=== PATIENT | female | born 1970 | race Caucasian/White ===

== ENCOUNTER → 2016-07-31 | Outpatient (CLI) | payer BC ==
--- NOTE | 2016-07-31 09:52 | REPMRS ---
Patient History The patient states she has not had a clinical breast exam in over a year. Family history of breast cancer in paternal grandmother at age 60 and colorectal cancer in maternal grandmother at age 67. Benign radio exam breast specimen of the right breast, July 18, 2014. Benign stereotatic loc for ea lesion of the right breast, July 18, 2014. Benign radio exam breast specimen of the right breast, July 26, 2013. Benign stereotatic loc for ea lesion of the right breast, July 26, 2013. Took hormonal contraceptives for 9 years. Digital Mammo Screening Bilat: July 31, 2016 - Exam #: [id number] Bilateral CC and MLO view(s) were taken. Technologist: Lynnette Robertson Technologist Prior study comparison: July 25, 2015, bilateral digital mammo screening bilat performed at [facility]. May 25, 2015, right breast digital mammo diagnostic unilateral performed at [facility]. FINDINGS: The breast tissue is extremely dense which could obscure a lesion on mammography. There is no evidence of cancer on this mammogram. Large coarse benign appearing calcifications are present. No significant changes when compared with prior studies. ASSESSMENT: BI-RADS/ACR category 2 mammogram. Benign finding(s). Recommendation Routine screening mammogram of both breasts in 1 year (for women over age 40). This mammogram was interpreted with the aid of an FDA-approved computer-aided dectection system. Electronically Signed By: Romeo Scott MD 07/31/16 0952
== END | disposition home or self-care (01) ==
LOC: M RAD 08:53
PROVIDERS: ATTEND Family Medicine
DX: Z12.31 Encounter for screening mammogram for malignant neoplasm of breast (principal); Z80.3 Family history of malignant neoplasm of breast; Z92.0 Personal history of contraception

== ENCOUNTER → 2016-08-26 | Outpatient (CLI) | payer BC ==
--- NOTE | 2016-08-26 11:26 | REP ---
Clinical: Right upper quadrant and post prandial pain. Technique: Scott scale ultrasound using curved array transducer. Findings: The liver and pancreas are normal in contour, size, and echogenicity without focal hepatic or pancreatic lesions identified. The gallbladder is normal without gallstones, wall thickening or pericholecystic fluid. No biliary ductal dilatation is appreciated, and the common bile duct measures 2.5 mm diameter. The right kidney is normal in reniform shape without hydronephrosis and measures 9.8 x 4.5 x 4.0 cm. Incidental note is made of small, subcentimeter simple renal cyst. No ascites. Visualized portions of the abdominal aorta normal. Impression: Subcentimeter renal cyst. Otherwise normal right upper quadrant and gallbladder abdominal ultrasound. Signed by Evgeny Claudio MD 08/26/2016 07:45 A
== END | disposition home or self-care (01) ==
LOC: M RAD 07:05
PROVIDERS: ATTEND Family Medicine
DX: N28.1 Cyst of kidney, acquired (principal)

== ENCOUNTER → 2016-10-01 | Outpatient (CLI) | payer BC ==
[2016-10-01 09:04] LABS: BASO % 0.4 % (0.0-1.0); EOS % 1.6 % (0.0-3.0); LYMPH # 0.7 K/mm3 (1.5-4.5); LYMPH % 20.9 % (24.0-44.0); MEAN CORPUSCULAR HEMOGLOBIN 32.8 pg (27.0-33.0); MEAN CORPUSCULAR HGB CONC 34.4 g/dl (32.0-36.5); MEAN CORPUSCULAR VOLUME 95.4 fl (80.0-96.0); MONO # 0.3 K/mm3 (0.0-0.8); NEUTROPHILS # 2.2 K/mm3 (1.8-7.7); NEUTROPHILS % 65.8 % (36.0-66.0); RED CELL DISTRIBUTION WIDTH 11.7 % (11.5-14.5); WHITE BLOOD COUNT 3.4 K/mm3 (4.0-10.0)
[2016-10-01 09:40] LABS: ALBUMIN 3.9 GM/DL (3.2-5.2); ALBUMIN/GLOBULIN RATIO 1.34 (1.00-1.93); ALKALINE PHOSPHATASE 74 U/L (45-117); ALT/SGPT 23 U/L (12-78); ANION GAP 7 MEQ/L (8-16); AST/SGOT 16 U/L (15-37); BILIRUBIN,TOTAL 0.4 MG/DL (0.2-1.0); BLOOD UREA NITROGEN 11 MG/DL (7-18); CALCIUM LEVEL 8.2 MG/DL (8.5-10.1); CARBON DIOXIDE LEVEL 25 MEQ/L (21-32); CHLORIDE LEVEL 107 MEQ/L (98-107); CREATININE FOR GFR 0.91 MG/DL (0.55-1.02); GLOMERULAR FILTRATION RATE > 60.0 (>58); GLUCOSE, FASTING 87 MG/DL (70-105); IMMUNOGLOBULIN G 994 MG/DL (681-1648); POTASSIUM SERUM 4.2 MEQ/L (3.5-5.1); SODIUM LEVEL 139 MEQ/L (136-145); TOTAL PROTEIN 6.8 GM/DL (6.4-8.2)
== END ==
LOC: M LAB 08:36
PROVIDERS: ATTEND Allergy & Immunology Allergy
DX: D83.9 Common variable immunodeficiency, unspecified (principal)

== ENCOUNTER → 2017-01-23 | Outpatient (REF) | payer BC ==
[2017-01-23 17:59] LABS: ALBUMIN/GLOBULIN RATIO 1.29 (1.00-1.93); ALKALINE PHOSPHATASE 87 U/L (45-117); ALT/SGPT 23 U/L (12-78); ANION GAP 4 MEQ/L (8-16); AST/SGOT 11 U/L (15-37); BILIRUBIN,TOTAL 0.3 MG/DL (0.2-1.0); BLOOD UREA NITROGEN 18 MG/DL (7-18); CALCIUM LEVEL 8.3 MG/DL (8.5-10.1); CARBON DIOXIDE LEVEL 30 MEQ/L (21-32); CHLORIDE LEVEL 106 MEQ/L (98-107); CREATININE FOR GFR 0.91 MG/DL (0.55-1.02); GLOMERULAR FILTRATION RATE > 60.0 (>58); GLUCOSE, FASTING 82 MG/DL (70-105); IMMUNOGLOBULIN G 802 MG/DL (681-1648); POTASSIUM SERUM 3.8 MEQ/L (3.5-5.1); SODIUM LEVEL 140 MEQ/L (136-145); TOTAL PROTEIN 7.1 GM/DL (6.4-8.2)
[2017-01-23 18:01] LABS: MEAN CORPUSCULAR HEMOGLOBIN 34.2 pg (27.0-33.0); MEAN CORPUSCULAR HGB CONC 35.1 g/dl (32.0-36.5); MEAN CORPUSCULAR VOLUME 97.5 fl (80.0-96.0); WHITE BLOOD COUNT 8.9 K/mm3 (4.0-10.0)
== END ==
LOC: M LABDRAW1 17:14
PROVIDERS: ATTEND Nurse Practitioner Family
DX: D83.9 Common variable immunodeficiency, unspecified (principal)

== ENCOUNTER → 2017-04-24 | Outpatient (CLI) | payer BC ==
--- NOTE | 2017-04-25 00:42 | REP ---
Clinical: Trauma. Technique: AP, lateral, bilateral oblique views right and left hand . Findings: The osseous structures and joint spaces are intact and normal. There is no evidence for acute fracture or dislocation. Surrounding soft tissues are unremarkable. No subcutaneous emphysema or radiodense foreign body. Impression: Normal bilateral hand radiograph series . No acute fracture or dislocation. Signed by Evgeny Claudio MD 04/25/2017 12:34 A
== END ==
LOC: M LRY 09:55
PROVIDERS: ATTEND Physician Assistant
DX: S69.91XA Unspecified injury of right wrist, hand and finger(s), initial encounter (principal); S69.92XA Unspecified injury of left wrist, hand and finger(s), initial encounter; X58.XXXA Exposure to other specified factors, initial encounter; Y92.9 Unspecified place or not applicable; Y93.9 Activity, unspecified; Y99.9 Unspecified external cause status

== ENCOUNTER → 2017-07-02 | Outpatient (REF) | payer BC ==
[2017-07-02 20:00] LABS: BASO % 0.2 % (0.0-1.0); EOS # 0.1 10^3/uL (0.0-0.50); EOS % 1.9 % (0.0-3.0); IMMATURE GRANULOCYTE % 0.2 % (0-0); LYMPH # 0.7 10^3/uL (1.5-4.5); LYMPH % 16.2 % (24.0-44.0); MEAN CORPUSCULAR HEMOGLOBIN 32.5 pg (27.0-33.0); MEAN CORPUSCULAR HGB CONC 33.9 g/dl (32.0-36.5); MEAN CORPUSCULAR VOLUME 95.9 fl (80.0-96.0); MONO # 0.5 10^3/uL (0.0-0.8); MONO % 10.4 % (0.0-5.0); NEUTROPHILS # 3.1 10^3/uL (1.8-7.7); NEUTROPHILS % 71.1 % (36.0-66.0); PLATELET COUNT, AUTOMATED 202 10^3/uL (150-450); RED CELL DISTRIBUTION WIDTH 11.9 % (11.5-14.5); WHITE BLOOD COUNT 4.3 10^3/uL (4.0-10.0)
[2017-07-02 20:15] LABS: ALBUMIN 4.3 GM/DL (3.2-5.2); ALBUMIN/GLOBULIN RATIO 1.43 (1.00-1.93); ALKALINE PHOSPHATASE 85 U/L (45-117); ALT/SGPT 28 U/L (12-78); ANION GAP 8 MEQ/L (8-16); AST/SGOT 18 U/L (7-37); BILIRUBIN,TOTAL 0.4 MG/DL (0.2-1.0); BLOOD UREA NITROGEN 15 MG/DL (7-18); CALCIUM LEVEL 8.5 MG/DL (8.5-10.1); CARBON DIOXIDE LEVEL 27 MEQ/L (21-32); CHLORIDE LEVEL 106 MEQ/L (98-107); CREATININE FOR GFR 0.86 MG/DL (0.55-1.02); GLOMERULAR FILTRATION RATE > 60.0 (>58); GLUCOSE, FASTING 86 MG/DL (70-105); IMMUNOGLOBULIN G 730 MG/DL (681-1648); MAGNESIUM LEVEL 2.2 MG/DL (1.8-2.4); POTASSIUM SERUM 3.9 MEQ/L (3.5-5.1); SODIUM LEVEL 141 MEQ/L (136-145); TOTAL PROTEIN 7.3 GM/DL (6.4-8.2)
[2017-07-02 20:27] LABS: VITAMIN B12 LEVEL 469 PG/ML (247-911)
== END ==
LOC: M SFHCLERA 17:15
PROVIDERS: ATTEND Physician Assistant
DX: D83.9 Common variable immunodeficiency, unspecified (principal); R20.9 Unspecified disturbances of skin sensation

== ENCOUNTER → 2017-08-01 | Outpatient (CLI) | payer BC | LOC: M RAD 08:33 | DX: Z12.31 Encounter for screening mammogram for malignant neoplasm of breast (principal); R92.8 Other abnormal and inconclusive findings on diagnostic imaging of breast | CPT/HCPCS: 77067 ==

== ENCOUNTER → 2017-10-21 | Outpatient (CLI) | payer BC | LOC: M RAD 07:08 | DX: R10.11 Right upper quadrant pain (principal); N20.0 Calculus of kidney | CPT/HCPCS: 76705 ==

== ENCOUNTER → 2017-10-24 | Outpatient (CLI) | payer BC | LOC: M RAD 08:43 | DX: N20.0 Calculus of kidney (principal) | CPT/HCPCS: 74176 ==

== ENCOUNTER → 2017-10-28 | Outpatient (CLI) | payer BC ==
[2017-10-28 13:02] LABS: HEMATOCRIT 43.4 % (36.0-47.0); HEMOGLOBIN 14.6 g/dl (12.0-15.5); MEAN CORPUSCULAR HEMOGLOBIN 32.6 pg (27.0-33.0); MEAN CORPUSCULAR HGB CONC 33.6 g/dl (32.0-36.5); MEAN CORPUSCULAR VOLUME 96.9 fl (80.0-96.0); PLATELET COUNT, AUTOMATED 170 10^3/uL (150-450); RED BLOOD COUNT 4.48 10^6/uL (4.00-5.40); RED CELL DISTRIBUTION WIDTH 11.9 % (11.5-14.5); WHITE BLOOD COUNT 3.6 10^3/uL (4.0-10.0)
[2017-10-28 13:28] LABS: ANION GAP 4 MEQ/L (8-16); BLOOD UREA NITROGEN 14 MG/DL (7-18); CALCIUM LEVEL 8.7 MG/DL (8.5-10.1); CARBON DIOXIDE LEVEL 29 MEQ/L (21-32); CHLORIDE LEVEL 107 MEQ/L (98-107); CREATININE FOR GFR 0.94 MG/DL (0.55-1.30); GLOMERULAR FILTRATION RATE > 60.0 (>58); GLUCOSE, FASTING 99 MG/DL (70-100); POTASSIUM SERUM 4.4 MEQ/L (3.5-5.1); SODIUM LEVEL 140 MEQ/L (136-145)
[2017-10-28 13:52] LABS: INR 0.89
[2017-10-28 13:53] LABS: PARTIAL THROMBOPLASTIN TIME 32.2 SECONDS (26.8-37.9)
== END ==
LOC: M SMT 08:36
DX: Z01.818 Encounter for other preprocedural examination (principal); N20.0 Calculus of kidney; N39.0 Urinary tract infection, site not specified
CPT/HCPCS: 80048

== ENCOUNTER → 2017-11-28 | Outpatient (CLI) | payer BC | LOC: M SMT 08:12 | DX: N20.0 Calculus of kidney (principal) | CPT/HCPCS: 74018 ==

== ENCOUNTER → 2018-02-13 | Outpatient (REF) | payer BC ==
[2018-02-13 12:36] LABS: APPEARANCE, URINE CLEAR (CLEAR); BACTERIA, URINE AUTO NEGATIVE (NEGATIVE); BILIRUBIN, URINE AUTO NEGATIVE (NEGATIVE); BLOOD, URINE BLOOD NEGATIVE (NEGATIVE); COLOR, URINE YELLOW (YELLOW); GLUCOSE, URINE (UA) AUTO NEGATIVE (NEGATIVE); KETONE, URINE AUTO NEGATIVE (NEGATIVE); LEUKOCYTE ESTERASE, URINE AUTO NEGATIVE (NEGATIVE); MUCUS, URINE SMALL (NEGATIVE); NITRITE, URINE AUTO NEGATIVE (NEGATIVE); PROTEIN, URINE AUTO NEGATIVE (NEGATIVE); RBC, URINE AUTO 0 /HPF (0-3); SPECIFIC GRAVITY URINE AUTO 1.018 (1.002-1.035); SQUAMOUS EPITHELIAL CELL UR AU 1 /HPF (0-6); UROBILINOGEN, URINE AUTO 0.2 mg/dL (0.0-2.0); WBC, URINE AUTO 0 /HPF (0-3)
== END ==
LOC: M SMT 11:45
DX: N20.0 Calculus of kidney (principal)

== ENCOUNTER → 2018-02-19 | Outpatient (CLI) | payer BC ==
[~2018-02-19] MED LIST: PROHANCE 279.3MG/ML 15ML VIAL (A9576) As Ordered
== END ==
LOC: M RAD 15:41
DX: Z12.31 Encounter for screening mammogram for malignant neoplasm of breast (principal)
CPT/HCPCS: A9576

== ENCOUNTER → 2018-05-20 | Outpatient (CLI) | payer BC | LOC: M RAD 11:10 | DX: N63.0 Unspecified lump in unspecified breast (principal) | CPT/HCPCS: 76642 ==

== ENCOUNTER → 2018-05-25 | Outpatient (CLI) | payer BC | LOC: M RAD 11:59 | DX: N63.10 Unspecified lump in the right breast, unspecified quadrant (principal); R92.0 Mammographic microcalcification found on diagnostic imaging of breast | CPT/HCPCS: 77065 ==

== ENCOUNTER → 2018-07-23 | Outpatient (CLI) | payer BC ==
[~2018-07-23] MED LIST changes: +ATOR1TAB19 PO; +CALCIUM WITH D3 PO; +DYMI137S; +MAGN500C PO; -PROHANCE 279.3MG/ML 15ML VIAL (A9576) As Ordered; +SING10TA32 PO; +TRAZ-163 PO; +VITA500T3 PO
--- NOTE | 2018-07-23 21:45 | ECHO ---
DATE OF PROCEDURE: 07/23/2018 DATE OF : 1970 AGE: 48 REFERRING PROVIDER: Dr. Reinaldo Jones PATIENT LOCATION: Outpatient. REASON FOR THE ECHOCARDIOGRAM: Chemotherapy drug monitoring. 2D MEASUREMENTS: IVS: 0.8 cm LV: 4.1 cm LVPW: 0.89 cm LA: 3.5 cm Aorta: 2.9 cm IVC: 1.7 cm DOPPLER MEASUREMENTS: Peak velocity across the aortic valve: 1.1 m/s Peak velocity across the LVOT: 0.64 m/s Mitral E: 0.64, Mitral A: 0.43 with a ratio of 1.5 Maximum tricuspid valve velocity: 2.2 m/s 2D COMMENTS: 1. Normal left ventricular size, wall thickness, and normal global left ventricular systolic function. The estimated left ventricular systolic ejection fraction is 65-70%. 2. Normal left atrium. Normal right atrium and right ventricle. 3. The atrial septum appeared to be normal without evidence of defect or shunt. 4. Normal aortic root. 5. No pericardial effusion seen. 6. The aortic valve, mitral valve, tricuspid valve appear to be normal. The pulmonic valve and proximal pulmonary artery branches were not totally visualized. 7. The inferior vena cava was normal in size, central venous pressure is most likely normal. DOPPLER: It detects trace mitral regurgitation, trace to mild tricuspid regurgitation. The calculated pulmonary artery systolic pressure was normal. Assessment of the left ventricular diastolic function was normal. IMPRESSION: 1. Technically limited study due to poor acoustic window. 2. Normal global left ventricular systolic and diastolic function. 3. Trace mitral regurgitation. 4. Trace to mild tricuspid regurgitation with a normal calculated pulmonary artery systolic pressure. 5. Patient during the test was in normal sinus rhythm with rare isolated premature ventricular contractions (PVCs) noted. MTDD
== END ==
LOC: M CARPUL 09:19
PROVIDERS: ATTEND Internal Medicine Hematology & Oncology
DX: C50.111 Malignant neoplasm of central portion of right female breast (principal)

== ENCOUNTER → 2018-09-30 | Outpatient (CLI) | payer BC ==
[2018-09-30 07:37] LABS: HEMATOCRIT 39.6 % (36.0-47.0); HEMOGLOBIN 12.7 g/dl (12.0-15.5); MEAN CORPUSCULAR HEMOGLOBIN 29.1 pg (27.0-33.0); MEAN CORPUSCULAR HGB CONC 32.1 g/dl (32.0-36.5); MEAN CORPUSCULAR VOLUME 90.6 fl (80.0-96.0); PLATELET COUNT, AUTOMATED 264 10^3/uL (150-450); RED BLOOD COUNT 4.37 10^6/uL (4.00-5.40); WHITE BLOOD COUNT 3.5 10^3/uL (4.0-10.0)
[2018-09-30 08:07] LABS: ALBUMIN 3.9 GM/DL (3.2-5.2); ALT/SGPT 28 U/L (12-78); BILIRUBIN,TOTAL 0.3 MG/DL (0.2-1.0); BLOOD UREA NITROGEN 22 MG/DL (7-18); CALCIUM LEVEL 8.5 MG/DL (8.5-10.1); CARBON DIOXIDE LEVEL 30 MEQ/L (21-32); CHLORIDE LEVEL 105 MEQ/L (98-107); CHOLESTEROL LEVEL 286 MG/DL (<200); CHOLESTEROL RISK RATIO 4.612 (<5); CREATININE FOR GFR 0.92 MG/DL (0.55-1.30); FREE T4 1.11 NG/DL (0.76-1.46); GLOMERULAR FILTRATION RATE > 60.0 (>58); GLUCOSE, FASTING 96 MG/DL (70-100); HDL CHOLESTEROL 62 MG/DL (>40); LDL CHOLESTEROL 185 MG/DL (<100); NON-HDL-C 224 MG/DL; POTASSIUM SERUM 4.4 MEQ/L (3.5-5.1); SODIUM LEVEL 141 MEQ/L (136-145); THYROID STIMULATING HORMONE 0.694 uIU/ML (0.358-3.740); TOTAL PROTEIN 6.6 GM/DL (6.4-8.2); TRIGLYCERIDES LEVEL 196 MG/DL (<150)
[2018-09-30 09:51] LABS: TOTAL 25(OH) VITAMIN D 16.3 NG/ML (30.0-100.0)
== END ==
LOC: M LAB 06:48
PROVIDERS: ATTEND Physician Assistant
DX: E78.2 Mixed hyperlipidemia (principal); R53.82 Chronic fatigue, unspecified; E55.9 Vitamin D deficiency, unspecified

== ENCOUNTER → 2018-10-07 | Outpatient (CLI) | payer BC ==
--- NOTE | 2018-10-07 19:03 | ECHO ---
DATE OF PROCEDURE: 10/07/2018 Date of : 1970 Age: 48 Gender: Female Height: 62 inches Weight: 139 pounds Body surface area: 1.63 meters squared Outpatient. REFERRING PHYSICIAN: Reinaldo Jones INDICATION: Potentially cardiotoxic chemotherapy. MEASUREMENTS: 2D measurements: RV: 2.5 cm LV: 4.4 cm Septum: 0.8 cm Posterior wall: 0.8 cm Aortic root: 2.9 cm LA: 3.0 cm LVEF: 65%. Doppler Measurements: AV: 1.19 m/s LVOT: 0.84 m/s LVOT diameter: 2.0 cm MV-E: 55, A: 50, EA ratio: 1.1 Early mitral deceleration time: 211 ms E prime: 6, A prime: 8.8, E/E prime ratio: 8.2 PV: 0.8 m/s Pulmonary artery acceleration time: 120 ms PASP: 28 mmHg IVC: 1.0 cm COMMENTS: Normal sinus rhythm without intraventricular conduction disturbance. Occasional PVCs at times a bigeminal pattern. M-mode and two-dimensional echocardiography was performed with pulsed, continuous wave, color flow and tissue Doppler studies. Normal left ventricular size, wall thickness and wall motion. Normal left atrial size and Doppler assessment of LV diastolic function and estimated mean left atrial pressure. Normal right heart chamber sizes and motion and estimated pulmonary arterial pressure. Somewhat reduced inferior vena caval diameter with complete collapse suggestive of a somewhat low central venous pressure. Normal appearing and functioning valvular structures. No apparent to cardiac mass and a minuscule posterior pericardial effusion measuring 3 mm. No cardiac chamber compression.
== END ==
LOC: M CARPUL 10:25
PROVIDERS: ATTEND Internal Medicine Hematology & Oncology
DX: C50.111 Malignant neoplasm of central portion of right female breast (principal)

== ENCOUNTER → 2018-12-28 | Outpatient (CLI) | payer BC ==
--- NOTE | 2018-12-29 07:01 | ECHO ---
DATE OF PROCEDURE: 12/28/2018 AGE: 48 GENDER: Female. HEIGHT: 63 inches. WEIGHT: 138 pounds. BODY SURFACE AREA: 1.65 meters squared REFERRING PHYSICIAN: Reinaldo Jones MD INDICATION: Potentially cardiotoxic chemotherapy. MEASUREMENTS 2-D MEASUREMENTS: RV - 3.2 cm LV - 5.0 cm Septum 0.8 cm Posterior wall 0.8 cm Aortic root 2.7 cm LA - 3.0 cm LVEF 65% DOPPLER MEASUREMENTS: AV - 1.2 m/s LVOT - - 0.83 m/s LVOT diameter 2.0 cm MV -E 68, A 56, E/A ratio 1.2 Early mitral deceleration time 187 ms E prime 10.9, A prime 9, E/E prime ratio 6.2 PV - 0.8 m/s Pulmonary artery acceleration time 140 ms RVSP - 25 mmHg IVC - 0.8 cm COMMENTS: Normal sinus rhythm without intraventricular conduction disturbance. M-mode and two-dimensional echocardiography was performed with pulsed, continuous wave, color flow and tissue Doppler studies. Normal left ventricular size, wall thickness and wall motion. Normal left atrial size and Doppler assessment of LV diastolic function. Normal right heart chamber sizes and motion and estimated pulmonary arterial pressure. Normal IVC size and collapse against an elevated central venous pressure. Normal appearing and functioning valvular structures. No apparent intracardiac mass or pericardial effusion. MTDD
== END ==
LOC: M CARPUL 09:31
PROVIDERS: ATTEND Internal Medicine Hematology & Oncology
DX: C50.111 Malignant neoplasm of central portion of right female breast (principal)

== ENCOUNTER → 2019-03-30 | Outpatient (CLI) | payer BC ==
[~2019-03-30] MED LIST changes: +CYAN500T8 PO; -VITA500T3 PO
--- NOTE | 2019-03-30 20:35 | ECHO ---
DATE OF PROCEDURE: 03/30/2019 REFERRING PHYSICIAN: Reinaldo Neumann MD INDICATION: Chemotherapy. HEIGHT: 160 cm WEIGHT: 64 kg DIMENSIONS: IVS: 1.0 LV: 4.3 LVPW: 0.8 LA: 3.3 Aort: 2.9 IVC: 0.8 Mitral E wave velocity: 61, A wave: 44 E prime septal: 8.8 E prime lateral: 13.2 FINDINGS: Study is of acceptable technical quality. The patient is in sinus rhythm. Left ventricle is of normal size and systolic function. I do not appreciate any segmental wall motion abnormalities. 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 Right ventricle is normal size and systolic function. Both atria appear normal. All four cardiac valves are reasonably well seen and appear normal. No pericardial effusion is noted. Inferior vena cava is relatively small caliber. Aortic root, aortic arch and visualized segment of abdominal aorta all appear normal. Doppler interrogation reveals no aortic stenosis or insufficiency, trace mitral insufficiency and trace tricuspid insufficiency. Calculated pulmonary artery pressure is within normal limits. Pulmonic valve is functionally competent. Mitral inflow pattern and tissue Doppler imaging of mitral annulus reveal normal diastolic function of left ventricle. CONCLUSION 1. Study is of acceptable technical quality. 2. Preserved LV size and systolic function, normal diastolic function. 3. No significant valvular disease. 4. Likely normal central venous pressure and normal pulmonary artery pressure. COMMENT Subacute bacterial endocarditis (SBE) prophylaxis is not recommended. Essentially normal echocardiogram.
== END ==
LOC: M CARPUL 10:19
PROVIDERS: ATTEND Internal Medicine Hematology & Oncology
DX: C50.111 Malignant neoplasm of central portion of right female breast (principal)

== ENCOUNTER → 2020-05-01 | Outpatient (CLI) | payer BC ==
[~2020-05-01] MED LIST changes: +PROHANCE 279.3MG/ML 15ML VIAL As Ordered ONE; -TRAZ-163 PO; +TRAZ-257 PO
--- NOTE | 2020-05-06 13:29 | REP ---
BILATERAL BREAST MRI WITH AND WITHOUT CONTRAST HISTORY: Right breast cancer status post mastectomy and implant reconstruction. COMPARISON: Preoperative MRI 02/19/2018. Mammogram 05/25/2018. TECHNIQUE: Multiple sequences are obtained in the axial, coronal, and sagittal planes prior to and following the intravenous administration of 12 mL ProHance. Images are evaluated on the [employer] software including dynamic post intravenous (IV) gadolinium T1 fat sat images, subtraction images, color overlay images. FINDINGS: Bilateral breast implants are present. There is no evidence of intracapsular or extracapsular rupture. Ill-defined signal is seen surrounding both implants anteriorly compatible with mild bilateral postsurgical change. There is no enhancing breast mass bilaterally. Chest wall demonstrates no evidence of signal abnormality or enhancing mass. There is no axillary adenopathy. There is no significant enhancing breast tissue bilaterally. IMPRESSION: BI-RADS Category 2 benign bilateral breast MRI. Bilateral breast implants demonstrate no intracapsular or extracapsular rupture. There is no suspicious enhancing mass or morphologic abnormality in either breast. No chest wall abnormality is seen. MTDD
== END ==
LOC: M RAD 07:31
PROVIDERS: ATTEND Nurse Practitioner
DX: N64.4 Mastodynia (principal); C50.411 Malignant neoplasm of upper-outer quadrant of right female breast; Z17.1 Estrogen receptor negative status [ER-]; Z98.82 Breast implant status
CPT/HCPCS: A9576; C8908

== ENCOUNTER → 2020-08-13 | Outpatient (CLI) | payer BC ==
[~2020-08-13] MED LIST changes: +CYAN500T14 PO; -CYAN500T8 PO; -PROHANCE 279.3MG/ML 15ML VIAL As Ordered ONE
== END ==
LOC: M LABSMTC 11:35
PROVIDERS: ATTEND Pediatrics
DX: Z20.822 Contact with and (suspected) exposure to COVID-19 (principal)

== ENCOUNTER → 2020-12-14 | Outpatient (CLI) | payer BC ==
[2020-12-14 07:37] LABS: BASO % 0.2 % (0.0-1.0); EOS % 0.5 % (0.0-3.0); HEMATOCRIT 44.8 % (36.0-47.0); HEMOGLOBIN 14.7 g/dl (12.0-15.5); LYMPH % 22.2 % (24.0-44.0); MEAN CORPUSCULAR HGB CONC 32.8 g/dl (32.0-36.5); MEAN CORPUSCULAR VOLUME 97.6 fl (80.0-96.0); MONO # 0.4 10^3/uL (0.0-0.8); MONO % 10.2 % (2.0-8.0); NEUTROPHILS # 2.9 10^3/uL (1.5-8.5); NEUTROPHILS % 66.4 % (36.0-66.0); PLATELET COUNT, AUTOMATED 191 10^3/uL (150-450); RED BLOOD COUNT 4.59 10^6/uL (4.00-5.40); WHITE BLOOD COUNT 4.3 10^3/uL (4.0-10.0)
[2020-12-14 08:05] LABS: ALBUMIN 3.9 GM/DL (3.2-5.2); ALT/SGPT 22 U/L (12-78); BILIRUBIN,TOTAL 0.4 MG/DL (0.2-1.0); BLOOD UREA NITROGEN 16 MG/DL (7-18); CALCIUM LEVEL 8.7 MG/DL (8.5-10.1); CARBON DIOXIDE LEVEL 27 MEQ/L (21-32); CHLORIDE LEVEL 108 MEQ/L (98-107); CHOLESTEROL LEVEL 253 MG/DL (<200); CREATININE FOR GFR 0.89 MG/DL (0.55-1.30); FREE T4 0.86 NG/DL (0.76-1.46); GLOMERULAR FILTRATION RATE > 60.0 (>58); GLUCOSE, FASTING 89 MG/DL (70-100); HDL CHOLESTEROL 68 MG/DL (>40); LDL CHOLESTEROL 157 MG/DL (<100); NON-HDL-C 185 MG/DL; POTASSIUM SERUM 4.4 MEQ/L (3.5-5.1); SODIUM LEVEL 141 MEQ/L (136-145); TOTAL PROTEIN 6.9 GM/DL (6.4-8.2); TRIGLYCERIDES LEVEL 139 MG/DL (<150)
[2020-12-14 08:56] LABS: FOLATE 13.3 NG/ML; TOTAL 25(OH) VITAMIN D 26.1 NG/ML (30.0-100.0); VITAMIN B12 LEVEL 367 PG/ML
== END ==
LOC: M LAB 07:04
PROVIDERS: ATTEND Physician Assistant
DX: J30.9 Allergic rhinitis, unspecified (principal)

== ENCOUNTER → 2021-06-16 | Outpatient (REF) | LOC: M LABSMTC 09:32 | PROVIDERS: ATTEND Pediatrics | DX: Z11.52 Encounter for screening for COVID-19 (principal) ==

== ENCOUNTER → 2022-06-16 | Outpatient (REF) | LOC: M LABSMTC 09:42 | PROVIDERS: ATTEND Family Medicine | DX: Z11.52 Encounter for screening for COVID-19 (principal) ==

== ENCOUNTER → 2022-09-04 | Outpatient (CLI) | payer BC ==
[~2022-09-04] MED LIST changes: +OMEP40CA5
== END ==
LOC: M LABSMTC 09:00
PROVIDERS: ATTEND Anesthesiology
DX: Z01.818 Encounter for other preprocedural examination (principal)

== ENCOUNTER 2022-09-09 07:04 | Day surgery (SDC) | payer BC ==
[~2022-09-09] VITALS: Ht 160 cm; Wt 63.5 kg
[~2022-09-09 07:04] MED LIST changes: +NS 1,000 ML IV ONE
[2022-09-09] MEDS ORDERED: propofoL 200 MG/20 ML VIAL As Ordered ONE ×2 (07:50→07:59)
[2022-09-09] MEDS ORDERED: LIDOCAINE 2% 100MG/5ML SDV (FOR ANES.) As Ordered ONE (07:50)
[2022-09-09] MEDS ORDERED: fentaNYL 100 MCG/2 ML INJECTION As Ordered ONE (07:50)
[2022-09-09 08:30] VITALS: BP 137/78
== END 2022-09-09 08:40 | disposition home or self-care (01) ==
LOC: M OPP 07:04
PROVIDERS: ATTEND Internal Medicine Gastroenterology
DX: Z12.11 Encounter for screening for malignant neoplasm of colon (principal); K57.30 Diverticulosis of large intestine without perforation or abscess without bleeding; K64.8 Other hemorrhoids; D37.4 Neoplasm of uncertain behavior of colon; K21.00 Gastro-esophageal reflux disease with esophagitis, without bleeding; K29.70 Gastritis, unspecified, without bleeding
CPT/HCPCS: 43239; 45385; 88305; J3010

== ENCOUNTER → 2022-10-25 | Outpatient (REF) | payer BC ==
[~2022-10-25] MED LIST changes: +MONT-5 PO; -NS 1,000 ML IV ONE; -SING10TA32 PO
[2022-10-25 17:01] LABS: BASO % 0.2 % (0.0-1.0); EOS % 0.7 % (0.0-3.0); HEMATOCRIT 45.1 % (36.0-47.0); HEMOGLOBIN 14.6 g/dl (12.0-15.5); LYMPH # 1.1 10^3/uL (1.5-5.0); LYMPH % 21.1 % (24.0-44.0); MEAN CORPUSCULAR HEMOGLOBIN 31.9 pg (27.0-33.0); MEAN CORPUSCULAR HGB CONC 32.4 g/dl (32.0-36.5); MEAN CORPUSCULAR VOLUME 98.5 fl (80.0-96.0); MONO # 0.4 10^3/uL (0.0-0.8); MONO % 7.8 % (2.0-8.0); NEUTROPHILS # 3.8 10^3/uL (1.5-8.5); PLATELET COUNT, AUTOMATED 201 10^3/uL (150-450); RED BLOOD COUNT 4.58 10^6/uL (4.00-5.40); WHITE BLOOD COUNT 5.4 10^3/uL (4.0-10.0)
[2022-10-25 17:16] LABS: URIC ACID 2.4 MG/DL (3.1-7.8); VITAMIN B12 LEVEL 516 PG/ML (211-911)
[2022-10-25 17:17] LABS: C REACTIVE PROTEIN QUANTITATIV < 0.40 MG/DL (<1.0); FOLATE 10.5 NG/ML (>5.4); TOTAL 25(OH) VITAMIN D 29.5 NG/ML (20.0-100.0)
[2022-10-25 17:19] LABS: FERRITIN 47.4 NG/ML (7.3-270.7); RHEUMATOID FACTOR QUANT < 3.5 IU/ML (<14)
[2022-10-25 17:20] LABS: ALBUMIN 4.2 G/DL (3.2-5.2); ALKALINE PHOSPHATASE 84 U/L (46-116); ALT/SGPT 22 U/L (7.0-40); AST/SGOT 14 U/L (<34); BILIRUBIN,TOTAL 0.6 MG/DL (0.3-1.2); BLOOD UREA NITROGEN 21 MG/DL (9-23); CALCIUM LEVEL 9.1 MG/DL (8.5-10.1); CARBON DIOXIDE LEVEL 29 MMOL/L (20-31); CHLORIDE LEVEL 103 MMOL/L (98-107); CHOLESTEROL LEVEL 276 MG/DL (<200); CHOLESTEROL RISK RATIO 4.11 (<5); CREATININE FOR GFR 0.86 MG/DL (0.55-1.30); FREE T4 1.14 NG/DL (0.89-1.76); GLOMERULAR FILTRATION RATE > 60.0 (>51); GLUCOSE, FASTING 81 MG/DL (60-100); HDL CHOLESTEROL 67.1 MG/DL (>40); LDL CHOLESTEROL 186.9 MG/DL (<100); MAGNESIUM LEVEL 1.9 MG/DL (1.8-2.4); NON-HDL-C 208.9 MG/DL; POTASSIUM SERUM 4.2 MMOL/L (3.5-5.1); SODIUM LEVEL 140 MMOL/L (136-145); TOTAL PROTEIN 6.9 G/DL (5.7-8.2); TRIGLYCERIDES LEVEL 110 MG/DL (<150)
[2022-10-28 18:07] LABS: ANA (HEP2) Negative (.)
== END ==
LOC: M SFHCADAM 14:10
PROVIDERS: ATTEND Physician Assistant
DX: M25.541 Pain in joints of right hand (principal); M25.542 Pain in joints of left hand; Z85.3 Personal history of malignant neoplasm of breast; E78.00 Pure hypercholesterolemia, unspecified; E55.9 Vitamin D deficiency, unspecified; R53.82 Chronic fatigue, unspecified

== ENCOUNTER → 2022-10-25 | Outpatient (CLI) | payer BC | LOC: M ADAMS 14:13 | PROVIDERS: ATTEND Physician Assistant | DX: M25.541 Pain in joints of right hand (principal); M25.542 Pain in joints of left hand ==

== ENCOUNTER 2022-12-20 06:34 | Day surgery (SDC) | payer BC ==
[~2022-12-20] VITALS: Ht 160 cm; Wt 63.9 kg
[~2022-12-20 06:34] MED LIST changes: +NS 1,000 ML IV ONE
[2022-12-20] MEDS ORDERED: LIDOCAINE 2% 100MG/5ML SDV (FOR ANES.) As Ordered ONE (06:52)
[2022-12-20] MEDS ORDERED: propofoL 200 MG/20 ML VIAL As Ordered ONE (06:52)
[2022-12-20 08:19] VITALS: BP 173/78
== END 2022-12-20 18:19 | disposition home or self-care (01) ==
LOC: M OPP 06:34
PROVIDERS: ATTEND Internal Medicine Gastroenterology
DX: Z86.010 Personal history of colon polyps (principal); K63.5 Polyp of colon; K64.4 Residual hemorrhoidal skin tags; K64.8 Other hemorrhoids; Z79.51 Long term (current) use of inhaled steroids; Z79.899 Other long term (current) drug therapy

== ENCOUNTER → 2023-08-15 | Outpatient (CLI) | payer BC ==
[~2023-08-15] MED LIST changes: -NS 1,000 ML IV ONE
[2023-08-15 12:15] LABS: BASO % 0.4 % (0.0-1.0); EOS # 0.1 10^3/uL (0.0-0.5); HEMATOCRIT 44.2 % (36.0-47.0); LYMPH # 1.1 10^3/uL (1.5-5.0); LYMPH % 21.1 % (24.0-44.0); MEAN CORPUSCULAR HEMOGLOBIN 33.3 pg (27.0-33.0); MEAN CORPUSCULAR HGB CONC 33.9 g/dl (32.0-36.5); MEAN CORPUSCULAR VOLUME 98.2 fl (80.0-96.0); MONO # 0.4 10^3/uL (0.0-0.8); NEUTROPHILS # 3.5 10^3/uL (1.5-8.5); NEUTROPHILS % 69.3 % (36.0-66.0); PLATELET COUNT, AUTOMATED 202 10^3/uL (150-450)
[2023-08-15 12:30] LABS: ERYTHROCYTE SEDIMENTATION RATE 2 mm/hr (0-30)
[2023-08-15 12:45] LABS: IMMUNOGLOBULIN A 266.4 MG/DL (40-350); IMMUNOGLOBULIN G 764 MG/DL (650-1600)
[2023-08-15 12:58] LABS: IMMUNOGLOBULIN E 7.3 IU/ML (0-378)
== END ==
LOC: M LAB 11:16
PROVIDERS: ATTEND Allergy & Immunology Allergy
DX: D84.9 Immunodeficiency, unspecified (principal)

== ENCOUNTER → 2023-09-24 | Outpatient (CLI) | payer BC | LOC: M PLAIMG 14:32 | PROVIDERS: ATTEND Internal Medicine Hematology & Oncology | DX: C50.111 Malignant neoplasm of central portion of right female breast (principal) ==

== ENCOUNTER → 2023-12-24 | Outpatient (CLI) | payer BC | LOC: M CARPUL 09:22 | PROVIDERS: ATTEND Internal Medicine Hematology & Oncology | DX: C50.111 Malignant neoplasm of central portion of right female breast (principal) ==

== ENCOUNTER → 2024-03-02 | Outpatient (CLI) | payer BC | LOC: M ONCR 08:53 | PROVIDERS: ATTEND General Practice | DX: C50.111 Malignant neoplasm of central portion of right female breast (principal); Z79.811 Long term (current) use of aromatase inhibitors; Z79.899 Other long term (current) drug therapy; Z87.442 Personal history of urinary calculi; Z90.710 Acquired absence of both cervix and uterus ==

== ENCOUNTER → 2024-03-26 | Outpatient (CLI) | payer BC | LOC: M PLAIMG 10:15 | PROVIDERS: ATTEND Internal Medicine Hematology & Oncology | DX: C50.111 Malignant neoplasm of central portion of right female breast (principal) ==

== ENCOUNTER → 2024-04-15 | Outpatient (CLI) | payer BC ==
[2024-04-15 13:30] LABS: ALBUMIN 3.6 G/DL (3.2-5.2); ALKALINE PHOSPHATASE 167 U/L (46-116); ALT/SGPT 47 U/L (7.0-40); AST/SGOT 44 U/L (<34); BILIRUBIN,TOTAL 0.3 MG/DL (0.3-1.2); BLOOD UREA NITROGEN 15 MG/DL (9-23); CARBON DIOXIDE LEVEL 33 MMOL/L (20-31); CHLORIDE LEVEL 107 MMOL/L (98-107); CREATININE FOR GFR 0.92 MG/DL (0.55-1.30); GLOMERULAR FILTRATION RATE > 60.0 (>51); GLUCOSE, FASTING 97 MG/DL (60-100); POTASSIUM SERUM 4.2 MMOL/L (3.5-5.1); SODIUM LEVEL 142 MMOL/L (136-145); TOTAL PROTEIN 7.1 G/DL (5.7-8.2)
== END ==
LOC: M LAB 12:28
PROVIDERS: ATTEND Internal Medicine Hematology & Oncology
DX: C50.111 Malignant neoplasm of central portion of right female breast (principal)

== ENCOUNTER → 2024-04-26 | Outpatient (RCR) | payer BC | LOC: M ONCR 04-06 10:24 | PROVIDERS: ATTEND General Practice | DX: Z51.0 Encounter for antineoplastic radiation therapy (principal); C50.111 Malignant neoplasm of central portion of right female breast ==

== ENCOUNTER → 2024-05-18 | Outpatient (CLI) | payer BC ==
[2024-05-18 10:39] LABS: ALBUMIN 3.7 G/DL (3.2-5.2); ALKALINE PHOSPHATASE 126 U/L (46-116); ALT/SGPT 37 U/L (7.0-40); AST/SGOT 30 U/L (<34); BILIRUBIN,TOTAL 0.3 MG/DL (0.3-1.2); BLOOD UREA NITROGEN 16 MG/DL (9-23); CARBON DIOXIDE LEVEL 32 MMOL/L (20-31); CHLORIDE LEVEL 106 MMOL/L (98-107); CREATININE FOR GFR 0.85 MG/DL (0.55-1.30); GLOMERULAR FILTRATION RATE > 60.0 (>51); GLUCOSE, FASTING 75 MG/DL (60-100); POTASSIUM SERUM 4.1 MMOL/L (3.5-5.1); SODIUM LEVEL 142 MMOL/L (136-145); TOTAL PROTEIN 7.2 G/DL (5.7-8.2)
[2024-05-18 10:45] LABS: BASO % 0.3 % (0.0-1.0); EOS # 0.1 10^3/uL (0.0-0.5); EOS % 2.5 % (0.0-3.0); HEMATOCRIT 42.4 % (36.0-47.0); HEMOGLOBIN 13.5 g/dl (12.0-15.5); LYMPH # 0.3 10^3/uL (1.5-5.0); LYMPH % 10.7 % (24.0-44.0); MEAN CORPUSCULAR HEMOGLOBIN 30.6 pg (27.0-33.0); MEAN CORPUSCULAR HGB CONC 31.8 g/dl (32.0-36.5); MEAN CORPUSCULAR VOLUME 96.1 fl (80.0-96.0); MONO # 0.5 10^3/uL (0.0-0.8); MONO % 16.7 % (2.0-8.0); NEUTROPHILS # 2.2 10^3/uL (1.5-8.5); NEUTROPHILS % 69.8 % (36.0-66.0); PLATELET COUNT, AUTOMATED 120 10^3/uL (150-450); RED BLOOD COUNT 4.41 10^6/uL (4.00-5.40); WHITE BLOOD COUNT 3.2 10^3/uL (4.0-10.0)
== END ==
LOC: M LAB 09:20
PROVIDERS: ATTEND Nurse Practitioner
DX: C50.111 Malignant neoplasm of central portion of right female breast (principal)

== ENCOUNTER 2024-05-26 08:15 | Outpatient (RCR) | payer BC | END 2024-05-27 | LOC: M ONCR 08:15 | PROVIDERS: ATTEND General Practice | DX: Z51.0 Encounter for antineoplastic radiation therapy (principal); C50.111 Malignant neoplasm of central portion of right female breast ==

== ENCOUNTER → 2024-06-14 | Outpatient (CLI) | payer BC ==
[~2024-06-14] MED LIST changes: +METH4PACK PO
== END ==
LOC: M CARPUL 08:16
PROVIDERS: ATTEND Internal Medicine Hematology & Oncology
DX: Z13.6 Encounter for screening for cardiovascular disorders (principal); C50.111 Malignant neoplasm of central portion of right female breast

== ENCOUNTER → 2024-08-12 | Outpatient (CLI) | payer BC | LOC: M ADAMS 14:57 | PROVIDERS: ATTEND Physician Assistant | DX: M46.1 Sacroiliitis, not elsewhere classified (principal) ==

== ENCOUNTER → 2024-08-12 | Outpatient (REF) | payer BC ==
[2024-08-12 18:15] LABS: HEMATOCRIT 43.1 % (36.0-47.0); HEMOGLOBIN 13.9 g/dl (12.0-15.5); MEAN CORPUSCULAR HEMOGLOBIN 31.5 pg (27.0-33.0); MEAN CORPUSCULAR HGB CONC 32.3 g/dl (32.0-36.5); MEAN CORPUSCULAR VOLUME 97.7 fl (80.0-96.0); PLATELET COUNT, AUTOMATED 171 10^3/uL (150-450); RED BLOOD COUNT 4.41 10^6/uL (4.00-5.40); WHITE BLOOD COUNT 4.5 10^3/uL (4.0-10.0)
[2024-08-12 18:42] LABS: ALBUMIN 3.7 G/DL (3.2-5.2); BILIRUBIN,TOTAL 0.3 MG/DL (0.3-1.2); CALCIUM LEVEL 9.8 MG/DL (8.5-10.1); CHOLESTEROL RISK RATIO 3.99 (<5); CREATININE FOR GFR 1.03 MG/DL (0.55-1.30); FOLATE 17.4 NG/ML (>5.4); FREE T4 1.12 NG/DL (0.89-1.76); GLOMERULAR FILTRATION RATE 59.9 (>51); HDL CHOLESTEROL 67.4 MG/DL (>40); LDL CHOLESTEROL 173.8 MG/DL (<100); NON-HDL-C 201.6 MG/DL; POTASSIUM SERUM 4.2 MMOL/L (3.5-5.1); THYROID STIMULATING HORMONE 0.703 uIU/ML (0.55-4.78); TOTAL PROTEIN 7.2 G/DL (5.7-8.2)
[2024-08-12 19:15] LABS: HEMOGLOBIN A1c 5.1 % (4.0-6.0)
== END ==
LOC: M SFHCADAM 14:51
PROVIDERS: ATTEND Physician Assistant
DX: Z85.3 Personal history of malignant neoplasm of breast (principal); E78.2 Mixed hyperlipidemia; E55.9 Vitamin D deficiency, unspecified; K21.9 Gastro-esophageal reflux disease without esophagitis; F51.01 Primary insomnia; M46.1 Sacroiliitis, not elsewhere classified

== ENCOUNTER → 2024-11-23 | Outpatient (CLI) | payer BC | LOC: M ONCR 08:03 | PROVIDERS: ATTEND General Practice | DX: Z08 Encounter for follow-up examination after completed treatment for malignant neoplasm (principal); Z85.3 Personal history of malignant neoplasm of breast; Z90.13 Acquired absence of bilateral breasts and nipples; Z92.29 Personal history of other drug therapy; Z92.21 Personal history of antineoplastic chemotherapy; Z79.899 Other long term (current) drug therapy ==

== ENCOUNTER → 2024-11-25 | Outpatient (CLI) | payer BC | LOC: M SOG 07:54 | PROVIDERS: ATTEND Physician Assistant | DX: M25.511 Pain in right shoulder (principal) ==

== ENCOUNTER → 2025-05-23 | Outpatient (CLI) | payer BC | LOC: M ONCR 07:55 | PROVIDERS: ATTEND General Practice | DX: Z08 Encounter for follow-up examination after completed treatment for malignant neoplasm (principal); Z85.3 Personal history of malignant neoplasm of breast; Z90.13 Acquired absence of bilateral breasts and nipples; Z92.21 Personal history of antineoplastic chemotherapy; Z92.3 Personal history of irradiation; Z98.82 Breast implant status; Z79.899 Other long term (current) drug therapy; Z98.890 Other specified postprocedural states ==